=== PATIENT | female | born 1960 | race Caucasian/White ===

== ENCOUNTER 2020-01-10 06:04 | Inpatient (IN) ==
[2020-01-10] MEDS ORDERED: DIAZEPAM 5 MG TABLET PO ONE (06:15)
[2020-01-10] MEDS ORDERED: diphenhydrAMINE CAP 25 MG CAPSULE PO ONE (06:15)
[2020-01-10] MEDS ORDERED: ASPIRIN 325 MG TABLET PO ONE (06:15)
[2020-01-10] MEDS ORDERED: POTASSIUM CHLORIDE RIDER 10 MEQ in PREMIX 1 EACH IV PRN (06:15)
[2020-01-10] MEDS ORDERED: MAGNESIUM SULF RIDER 2 GM in PREMIX 1 EACH IV PRN (06:15)
[2020-01-10 07:15] LABS: Basophils # 0.1 10*3/uL (0.0-0.2); Basophils % 0.8 % (0.0-0.8); Eosinophils # 0.2 10*3/uL (0.0-0.87); Hematocrit 41.6 VOL% (35.7-47.0); Immature Granulocytes % 0.3 %; Immature Granulocytes Absolute 0.04 #; Lymphocytes # 2.3 10*3/uL (1.4-4.0); Lymphocytes % 19.7 % (21.3-54.2); Mean Corpuscular HGB Conc 33.7 GM/DL (32-36); Mean Corpuscular Volume 91.2 FL (87-102); Mean Platelet Volume 9.6 FL (9.6-12.0); Monocytes % 7.9 % (1.7-12.7); Neutrophils % 69.3 % (38.7-73.9); Platelet Count 293 T/CUMM (130-400); Red Blood Count 4.56 MC/CUMM (3.8-5.5); Red Cell Distribution Width 11.5 % (9.3-17.3); White Blood Count 11.9 T/CUMM (4-12)
[2020-01-10 07:24] LABS: PT Patient Result 10.7 SECS (9.8-11.9)
[2020-01-10 07:33] LABS: Albumin 4.1 G/DL (3.4-5.0); Bilirubin,Total 1.8 MG/DL (0.2-1.0); Calcium 9.3 MG/DL (8.5-10.1); Osmolality,Calculated 280.7 MOS/KG (273-304); Total Protein 7.8 G/DL (6.4-8.3)
[2020-01-10] MEDS ORDERED: DIAZEPAM 5 MG TABLET ONE (07:41)
[2020-01-10] MEDS ORDERED: diphenhydrAMINE CAP 25 MG CAPSULE ONE (07:42)
[2020-01-10] MEDS ORDERED: ASPIRIN 325 MG TABLET ONE (07:42)
[2020-01-10] MEDS: SODIUM CHLORIDE 0.9% 1,000 ML IV SCH ×2 (07:44→18:28)
[2020-01-10] MEDS ORDERED: HEPARIN/NACL 0.9% 2 UNITS/ML 1,000 ML IV ONE (08:26)
[2020-01-10] MEDS ORDERED: LIDOCAINE 1% 20 ML VIAL ONE (08:26)
[2020-01-10] MEDS ORDERED: fentaNYL 100 MCG/2 ML VIAL ONE (09:02)
[2020-01-10] MEDS ORDERED: MIDAZOLAM 2 MG/2 ML VIAL ONE ×2 (09:02→09:22)
[2020-01-10] MEDS ORDERED: ACETAMINOPHEN 325 MG TABLET PO PRN (10:22)
[2020-01-10] MEDS ORDERED: ONDANSETRON 4 MG/2 ML VIAL IV PRN (10:22)
[2020-01-10] MEDS ORDERED: ZALEPLON 5 MG CAPSULE PO PRN (10:22)
[2020-01-10] MEDS ORDERED: MORPHINE 4 MG/1 ML VIAL IV PRN (10:22)
[2020-01-10] MEDS: METOPROLOL TARTRATE 100 MG TABLET PO SCH (21:35)
[2020-01-11] MEDS: SODIUM CHLORIDE 0.9% 1,000 ML IV SCH (03:42)
[2020-01-11 05:50] LABS: Basophils # 0.1 10*3/uL (0.0-0.2); Basophils % 1.1 % (0.0-0.8); Eosinophils # 0.2 10*3/uL (0.0-0.87); Eosinophils % 2.1 % (0.00-10.9); Hematocrit 38.7 VOL% (35.7-47.0); Immature Granulocytes % 0.3 %; Immature Granulocytes Absolute 0.03 #; Lymphocytes # 2.8 10*3/uL (1.4-4.0); Lymphocytes % 24.8 % (21.3-54.2); Mean Corpuscular HGB Conc 33.6 GM/DL (32-36); Mean Corpuscular Volume 92.4 FL (87-102); Mean Platelet Volume 9.7 FL (9.6-12.0); Monocytes % 9.7 % (1.7-12.7); Platelet Count 259 T/CUMM (130-400); Red Blood Count 4.19 MC/CUMM (3.8-5.5); Red Cell Distribution Width 11.6 % (9.3-17.3); White Blood Count 11.3 T/CUMM (4-12)
[2020-01-11] MEDS: ENOXAPARIN 40 MG/0.4 ML SYRINGE SUBCUT SCH (06:04)
[2020-01-11 06:07] LABS: Calcium 8.6 MG/DL (8.5-10.1); Osmolality,Calculated 283.3 MOS/KG (273-304); Risk Ratio 2.55
[2020-01-11] MEDS: ASPIRIN EC 81 MG TABLET PO SCH (08:30)
[2020-01-11] MEDS: hydroCHLOROthiazide 12.5 MG CAPSULE PO SCH ×2 (08:30→08:42)
[2020-01-11] MEDS: MULTIVITAMIN (CENTRUM) TABLET PO SCH (08:30)
[2020-01-11] MEDS: METOPROLOL TARTRATE 100 MG TABLET PO SCH ×2 (08:30→21:47)
[2020-01-11] MEDS ORDERED: ROSUVASTATIN 20 MG TABLET PO SCH (09:00)
[2020-01-11] MEDS ORDERED: amLODIPine 10 MG TABLET PO SCH ×2 (09:00→16:00)
[2020-01-11] MEDS ORDERED: GLUCAGON 1 MG VIAL IM PRN (10:42)
[2020-01-11] MEDS ORDERED: DEXTROSE 50% 25 GM/50 ML VIAL IV PRN (10:42)
[2020-01-11] MEDS: INSULIN LISPRO 100 UNIT/ML SUBCUT SCH ×3 (12:24→21:46)
[2020-01-11] MEDS: amLODIPine 10 MG TABLET PO SCH (15:53)
[2020-01-11] MEDS: ROSUVASTATIN 20 MG TABLET PO SCH (21:46)
[2020-01-12 04:59] LABS: Basophils # 0.1 10*3/uL (0.0-0.2); Eosinophils # 0.3 10*3/uL (0.0-0.87); Eosinophils % 2.6 % (0.00-10.9); Hemoglobin 13.2 GM/DL (12.0-16.0); Immature Granulocytes % 0.2 %; Immature Granulocytes Absolute 0.02 #; Lymphocytes # 3.1 10*3/uL (1.4-4.0); Lymphocytes % 32.4 % (21.3-54.2); Mean Corpuscular HGB Conc 33.8 GM/DL (32-36); Mean Corpuscular Volume 90.1 FL (87-102); Mean Platelet Volume 10.1 FL (9.6-12.0); Monocytes % 11.6 % (1.7-12.7); Neutrophils % 52.2 % (38.7-73.9); Platelet Count 259 T/CUMM (130-400); Red Blood Count 4.33 MC/CUMM (3.8-5.5); Red Cell Distribution Width 11.5 % (9.3-17.3); White Blood Count 9.6 T/CUMM (4-12)
[2020-01-12 05:20] LABS: Osmolality,Calculated 282.4 MOS/KG (273-304)
[2020-01-12] MEDS: ENOXAPARIN 40 MG/0.4 ML SYRINGE SUBCUT SCH (06:20)
[2020-01-12] MEDS: INSULIN LISPRO 100 UNIT/ML SUBCUT SCH ×4 (08:19→20:38)
[2020-01-12] MEDS: METOPROLOL TARTRATE 50 MG TABLET PO SCH ×2 (09:55→20:37)
[2020-01-12] MEDS: MULTIVITAMIN (CENTRUM) TABLET PO SCH (09:55)
[2020-01-12] MEDS: hydroCHLOROthiazide 12.5 MG CAPSULE PO SCH (09:55)
[2020-01-12] MEDS ORDERED: DIAZEPAM 5 MG TABLET PO ONE (10:07)
[2020-01-12] MEDS: ASPIRIN EC 81 MG TABLET PO SCH (10:33)
[2020-01-12] MEDS ORDERED: FAMOTIDINE 20 MG TABLET PO ONE (10:45)
[2020-01-12] MEDS ORDERED: BACITRACIN 50,000 UNIT VIAL ONE (11:39)
[2020-01-12] MEDS ORDERED: LIDOCAINE 1% 20 ML VIAL ONE (11:39)
[2020-01-12] MEDS ORDERED: HEPARIN 5,000 UNIT/1 ML VIAL ONE (11:39)
[2020-01-12] MEDS ORDERED: TISSUE ADHESIVE 1 EACH APPLICATOR TOP ONE (11:40)
[2020-01-12] MEDS ORDERED: ROPIVACAINE 0.5% 30 ML VIAL ONE (12:51)
[2020-01-12] MEDS ORDERED: HEPARIN 10,000 UNIT/10 ML VIAL ONE ×2 (12:52→15:40)
[2020-01-12] MEDS ORDERED: PROTAMINE SULFATE 50 MG/5 ML VIAL IV ONE ×2 (12:52→15:40)
[2020-01-12] MEDS ORDERED: LACTATED RINGERS 1,000 ML IV SCH (13:30)
[2020-01-12] MEDS ORDERED: ceFAZolin 1,000 MG VIAL ONE (13:51)
[2020-01-12] MEDS ORDERED: niCARdipine INJ 25 MG in SODIUM CHLORIDE 0.9% 240 ML IV PRN (15:00)
[2020-01-12] MEDS ORDERED: DEXTROSE 50% 25 GM/50 ML VIAL IV PRN (15:01)
[2020-01-12] MEDS ORDERED: LIDOCAINE 2% 5 ML VIAL ONE (15:39)
[2020-01-12] MEDS ORDERED: propofoL 200 MG/20 ML VIAL IV ONE (15:39)
[2020-01-12] MEDS ORDERED: PHENYLEPHRINE DRIP 20 MG/250 ML PREMIX IV ONE (15:39)
[2020-01-12] MEDS ORDERED: GLYCOPYRROLATE 0.4 MG/2 ML VIAL ONE (15:40)
[2020-01-12] MEDS ORDERED: DESFLURANE 1 UNIT/15 MINUTE INH ONE (15:40)
[2020-01-12] MEDS ORDERED: ONDANSETRON 4 MG/2 ML VIAL ONE (15:40)
[2020-01-12] MEDS ORDERED: PHENYLEPHRINE 1 MG/10 ML SYRINGE IV ONE (15:40)
[2020-01-12] MEDS ORDERED: ROCURONIUM 100 MG/10 ML VIAL IV ONE (15:40)
[2020-01-12] MEDS ORDERED: fentaNYL 100 MCG/2 ML VIAL ONE (15:40)
[2020-01-12] MEDS ORDERED: ETOMIDATE 40 MG/20 ML VIAL IV ONE (15:40)
[2020-01-12] MEDS ORDERED: NITROGLYCERIN DRIP 50 MG/250 ML BOTTLE IV ONE (15:40)
[2020-01-12] MEDS ORDERED: NEOSTIGMINE 10 MG/10 ML VIAL ONE (15:41)
[2020-01-12] MEDS: amLODIPine 10 MG TABLET PO SCH (18:10)
[2020-01-12] MEDS: ACETAMINOPHEN/CODEINE 300-30 MG TABLET PO PRN ×2 (19:15→23:10)
[2020-01-12] MEDS: ROSUVASTATIN 20 MG TABLET PO SCH (20:37)
[2020-01-13 04:52] LABS: Basophils % 0.3 % (0.0-0.8); Hematocrit 40.6 VOL% (35.7-47.0); Hemoglobin 13.9 GM/DL (12.0-16.0); Immature Granulocytes % 0.3 %; Immature Granulocytes Absolute 0.04 #; Lymphocytes % 8.4 % (21.3-54.2); Mean Corpuscular HGB Conc 34.2 GM/DL (32-36); Mean Corpuscular Volume 89.8 FL (87-102); Mean Platelet Volume 9.9 FL (9.6-12.0); Monocytes % 5.9 % (1.7-12.7); Neutrophils % 85.1 % (38.7-73.9); Platelet Count 265 T/CUMM (130-400); Red Blood Count 4.52 MC/CUMM (3.8-5.5); Red Cell Distribution Width 11.3 % (9.3-17.3); White Blood Count 11.6 T/CUMM (4-12)
[2020-01-13 05:04] LABS: Calcium 9.6 MG/DL (8.5-10.1); Osmolality,Calculated 277.8 MOS/KG (273-304)
[2020-01-13] MEDS ORDERED: hydrALAZINE 20 MG/1 ML VIAL IV PRN (05:05)
[2020-01-13] MEDS: ACETAMINOPHEN/CODEINE 300-30 MG TABLET PO PRN (06:12)
[2020-01-13] MEDS: ENOXAPARIN 40 MG/0.4 ML SYRINGE SUBCUT SCH (06:12)
[2020-01-13] MEDS: INSULIN LISPRO 100 UNIT/ML SUBCUT SCH ×2 (07:45→12:52)
[2020-01-13] MEDS: METOPROLOL TARTRATE 50 MG TABLET PO SCH (08:34)
[2020-01-13] MEDS: ASPIRIN EC 81 MG TABLET PO SCH (08:34)
[2020-01-13] MEDS: MULTIVITAMIN (CENTRUM) TABLET PO SCH (08:34)
[2020-01-13] MEDS: hydroCHLOROthiazide 12.5 MG CAPSULE PO SCH (08:34)
[2020-01-13] MEDS ORDERED: OLMESARTAN 20 MG TABLET PO SCH (09:00)
[2020-01-13 12:47] VITALS: BP 105/61
== END 2020-01-13 14:35 | disposition home or self-care (01) | DRG 253 ==
LOC: N.CL 06:04 → N.TELEN 10:22 → N.ICU 01-12 15:51 → N.TELES 01-13 09:40
PROVIDERS: ADMIT Internal Medicine Cardiovascular Disease; ATTEND Internal Medicine Cardiovascular Disease
PROC: CLCCHCL (ICD-10-PCS; 2020-01-10 10:15)